=== PATIENT | female | born 1950 | race Hispanic/Latino ===

== ENCOUNTER 2020-11-04 15:30 | Inpatient (IN) | payer MEDICARE, OTHER ==
[~2020-11-04] VITALS: Ht 175.3 cm; Wt 95.1 kg
[~2020-11-04 15:30] MED LIST: ACETAMINOPHEN325 M1 PO; AMLODIPINE BESY10 MG PO; ASPIRIN81 MG PO; BACTRIM DS TAB1 EACH PO; BENAZEPRIL-HCT1 EAC3 PO; CALCITRIOL0.25 MCG PO; DOXYCYCLINE MO100 MG PO; FUROSEMIDE40 MG PO; GLIPIZIDE5 MG PO; INSULIN GLARGINE SC; LEVOTHYROXINE100 MC1 PO; LEVOTHYROXINE100 MCG PO; LOKELMA10 GM PO; LOSARTAN POTAS100 MG PO; METOPROLOL TART50 MG PO; ONDANSETRON HCL INJ 2MG/ML 2ML 2 MG/ML VIAL ONE; POVIDONE IODINE 0.05% 0.05 % ML PO ONE; PRAVASTATIN SOD40 MG PO; TRADJENTA5 MG PO; VITAMIN D32000 UNIT PO
[2020-11-04 16:30] LABS: BASOPHILS % 0.4 % (0.0-1.0); EOSINOPHILS # (AUTO) 0.1 (0.0-0.4); EOSINOPHILS % 0.9 % (0.0-6.0); HEMATOCRIT 25.9 % (34.2-44.1); HEMOGLOBIN 8.5 g/dL (12.0-16.0); LYMPHOCYTES # (AUTO) 1.2 (1.0-3.2); LYMPHOCYTES % 15.7 % (18.0-39.1); MEAN CORPUSCULAR HEMOGLOBIN 29.9 pg (28-32); MEAN CORPUSCULAR HGB CONC 32.8 g/dL (31-35); MEAN CORPUSCULAR VOLUME 91.2 fL (81-99); MONOCYTES # (AUTO) 0.6 (0.2-0.8); MONOCYTES % 7.8 % (4.4-11.3); NEUTROPHILS # (AUTO) 5.8 (2.1-6.9); NEUTROPHILS % 73.8 % (38.7-80.0); PLATELET COUNT 242 x10e3/uL (140-360); RED BLOOD COUNT 2.84 x10e6/uL (3.6-5.1)
[2020-11-04 16:32] LABS: CLARITY,URINE CLEAR (CLEAR); COLOR,URINE YELLOW (YELLOW); KETONES,URINE NEGATIVE (NEGATIVE); LEUKOCYTE ESTERASE ,URINE NEGATIVE (NEGATIVE); NITRITE,URINE NEGATIVE (NEGATIVE); PROTEIN,URINE DIPSTICK NEGATIVE (NEGATIVE); URINE UROBILINOGEN 0.2 mg/dL (0.2 - 1)
[2020-11-04 16:45] LABS: BACTERIA,URINE RARE /HPF; EPITHELIAL CELLS,URINE FEW /LPF
[2020-11-04 16:50] LABS: ALBUMIN 2.5 g/dL (3.5-5.0); ALBUMIN/GLOBULIN RATIO 0.5 (0.8-2.0); ANION GAP 16.1 mmol/L (8-16); CALCIUM 9.5 mg/dL (8.4-10.2); CREATININE, SERUM 4.25 mg/dL (0.57-1.11)
[2020-11-04 16:54] LABS: POTASSIUM 6.1 mmol/L (3.5-5.1)
[2020-11-04] MEDS ORDERED: SODIUM BICARBONATE 8.4% INJ 50 ML SYR IV STA (17:08)
[2020-11-04] MEDS ORDERED: DEXTROSE 50% SYRINGE 50 ML IV ONE (17:15)
[2020-11-04] MEDS ORDERED: CALCIUM GLUCONATE 10% INJ 4.65 MEQ in SODIUM CHLORIDE 0.9% 50ML 50 ML IV ONE (17:15)
[2020-11-04] MEDS ORDERED: SOD POLYSTYRENE SULFONATE SUSP 15 GM/60 ML BTL PO ONE (17:15)
[2020-11-04] MEDS ORDERED: INSULIN REGULAR, HUMAN 100 UNIT/1 ML IV ONE (17:15)
[2020-11-04] MEDS ORDERED: SODIUM CHLORIDE 0.9% 250ML 250 ML ONE (17:23)
[2020-11-04] MEDS ORDERED: CALCIUM GLUCONATE 10% INJ 0.465 MEQ/ML VIAL ONE (17:23)
[2020-11-04 17:29] LABS: CREATINE KINASE MB 1.5 ng/mL (0-5.0)
[2020-11-04] MEDS ORDERED: SODIUM CHLORIDE 0.9% 1000ML 1,000 ML IV ONE (18:00)
[2020-11-04] MEDS ORDERED: DEXTROSE 50% SYRINGE 50 ML IV PRN (18:00)
[2020-11-04] MEDS ORDERED: ONDANSETRON HCL INJ 2MG/ML 2ML 2 MG/ML VIAL IV PRN (18:00)
[2020-11-04] MEDS ORDERED: TOUJEO MAX300 UNIT/1 SC (18:05)
[2020-11-04] MEDS ORDERED: EUTHYROX100 MCG (18:05)
[2020-11-04] MEDS ORDERED: SMZ/TMP (18:05)
[2020-11-04] MEDS ORDERED: METOPROLOL SUCC50 MG PO (18:05)
[2020-11-04] MEDS ORDERED: CLOPIDOGREL75 MG (18:05)
[2020-11-04 20:16] VITALS: BP 125/48
[2020-11-04 20:30] VITALS: BP 125/48
[2020-11-04] MEDS: CEFEPIME 1 GM in SODIUM CHLORIDE 0.9% 50ML 50 ML IV SCH (20:50)
[2020-11-04] MEDS: INSULIN REGULAR, HUMAN 100 UNIT/1 ML SQ SCH (20:51)
[2020-11-04] MEDS ORDERED: AMLODIPINE BESY10 MG PO (21:09)
[2020-11-04] MEDS ORDERED: GLIPIZIDE5 MG PO (21:09)
[2020-11-04] MEDS ORDERED: DOXYCYCLINE MO100 M1 (21:09)
[2020-11-04] MEDS: ACETAMINOPHEN 325 MG TAB PO PRN (23:16)
[2020-11-05] VITALS (8 sets, daily range): BP systolic 120–144; BP diastolic 37–51
[2020-11-05] MEDS ORDERED: ACETAMINOPHEN/CODEINE 300MG - 30MG TAB PO PRN (01:00)
[2020-11-05] MEDS: ACETAMINOPHEN 325 MG TAB PO PRN ×2 (04:06→10:08)
[2020-11-05 05:31] LABS: BASOPHILS % 0.5 % (0.0-1.0); EOSINOPHILS # (AUTO) 0.1 (0.0-0.4); EOSINOPHILS % 1.3 % (0.0-6.0); HEMATOCRIT 24.1 % (34.2-44.1); HEMOGLOBIN 7.9 g/dL (12.0-16.0); LYMPHOCYTES # (AUTO) 1.5 (1.0-3.2); LYMPHOCYTES % 18.9 % (18.0-39.1); MEAN CORPUSCULAR HEMOGLOBIN 29.8 pg (28-32); MEAN CORPUSCULAR HGB CONC 32.8 g/dL (31-35); MEAN CORPUSCULAR VOLUME 90.9 fL (81-99); MONOCYTES # (AUTO) 0.8 (0.2-0.8); MONOCYTES % 9.8 % (4.4-11.3); NEUTROPHILS # (AUTO) 5.2 (2.1-6.9); NEUTROPHILS % 68.3 % (38.7-80.0); PLATELET COUNT 239 x10e3/uL (140-360); RED BLOOD COUNT 2.65 x10e6/uL (3.6-5.1)
[2020-11-05 05:58] LABS: ALBUMIN 2.3 g/dL (3.5-5.0); ALBUMIN/GLOBULIN RATIO 0.5 (0.8-2.0); ANION GAP 14.1 mmol/L (8-16); CALCIUM 9.7 mg/dL (8.4-10.2); CREATININE, SERUM 4.12 mg/dL (0.57-1.11); POTASSIUM 5.1 mmol/L (3.5-5.1)
[2020-11-05] MEDS: INSULIN REGULAR, HUMAN 100 UNIT/1 ML SQ SCH ×4 (07:30→21:00)
[2020-11-05] MEDS ORDERED: MAGNESIUM SULFATE 2GM/50ML 50 ML IV ONE ×2 (16:00)
[2020-11-05] MEDS ORDERED: MAGNESIUM SULF 1GRAM/DEXTROSE 100 ML IV SCH ×2 (16:30→19:10)
[2020-11-05] MEDS: CEFEPIME 1 GM in SODIUM CHLORIDE 0.9% 50ML 50 ML IV SCH (16:57)
[2020-11-05] MEDS: SODIUM CHLORIDE 0.9% 1000ML 1,000 ML IV SCH (16:57)
[2020-11-05] MEDS: MAGNESIUM SULF 1GRAM/DEXTROSE 100 ML IV SCH ×2 (19:40→20:50)
[2020-11-06] VITALS (7 sets, daily range): BP systolic 119–138; BP diastolic 41–54
[2020-11-06] MEDS: ACETAMINOPHEN 325 MG TAB PO PRN (00:10)
[2020-11-06] MEDS: SODIUM CHLORIDE 0.9% 1000ML 1,000 ML IV SCH ×2 (01:45→12:00)
[2020-11-06] MEDS: LEVOTHYROXINE SODIUM 100 MCG TAB PO SCH (06:00)
[2020-11-06 06:42] LABS: ANION GAP 16.5 mmol/L (8-16); CALCIUM 9.4 mg/dL (8.4-10.2); CREATININE, SERUM 3.54 mg/dL (0.57-1.11); POTASSIUM 5.5 mmol/L (3.5-5.1)
[2020-11-06] MEDS: INSULIN REGULAR, HUMAN 100 UNIT/1 ML SQ SCH ×4 (07:30→21:33)
[2020-11-06] MEDS: AMLODIPINE BESYLATE 10 MG TAB PO SCH (10:10)
[2020-11-06] MEDS ORDERED: SOD POLYSTYRENE SULFONATE SUSP 15 GM/60 ML BTL PO ONE (15:30)
[2020-11-06] MEDS ORDERED: FUROSEMIDE INJ 10 MG/ML 2 ML VIAL IV NR (15:30)
[2020-11-06] MEDS ORDERED: SOD POLYSTYRENE SULFONATE SUSP 15 GM/60 ML BTL PO NR (15:45)
[2020-11-06] MEDS: FAMOTIDINE 20 MG TAB PO SCH (16:28)
[2020-11-06] MEDS: CEFEPIME 1 GM in SODIUM CHLORIDE 0.9% 50ML 50 ML IV SCH (17:47)
[2020-11-07] VITALS (8 sets, daily range): BP systolic 105–141; BP diastolic 36–64
[2020-11-07] MEDS: SODIUM CHLORIDE 0.9% 1000ML 1,000 ML IV SCH (01:45)
[2020-11-07] MEDS: LEVOTHYROXINE SODIUM 100 MCG TAB PO SCH (06:00)
[2020-11-07 07:04] LABS: ANION GAP 13.3 mmol/L (8-16); CALCIUM 8.8 mg/dL (8.4-10.2); CREATININE, SERUM 3.34 mg/dL (0.57-1.11); POTASSIUM 5.3 mmol/L (3.5-5.1)
[2020-11-07] MEDS: FAMOTIDINE 20 MG TAB PO SCH ×2 (07:30→16:30)
[2020-11-07] MEDS: INSULIN REGULAR, HUMAN 100 UNIT/1 ML SQ SCH ×4 (07:30→20:25)
[2020-11-07 07:31] LABS: THYROID STIMULATING HORMONE 1.673 uIU/mL (0.350-4.940)
[2020-11-07] MEDS ORDERED: FUROSEMIDE INJ 10 MG/ML 2 ML VIAL IV ONE (08:30)
[2020-11-07] MEDS ORDERED: SOD POLYSTYRENE SULFONATE SUSP 15 GM/60 ML BTL PO ONE (08:30)
[2020-11-07] MEDS: AMLODIPINE BESYLATE 10 MG TAB PO SCH (09:00)
[2020-11-07] MEDS ORDERED: SODIUM CHLORIDE 0.9% 250ML 250 ML ONE (16:00)
[2020-11-07] MEDS: CEFEPIME 1 GM in SODIUM CHLORIDE 0.9% 50ML 50 ML IV SCH (18:00)
[2020-11-08] VITALS (9 sets, daily range): BP systolic 135–159; BP diastolic 43–66
[2020-11-08 04:54] LABS: BASOPHILS % 0.5 % (0.0-1.0); EOSINOPHILS # (AUTO) 0.1 (0.0-0.4); EOSINOPHILS % 2.3 % (0.0-6.0); HEMATOCRIT 24.7 % (34.2-44.1); HEMOGLOBIN 7.9 g/dL (12.0-16.0); LYMPHOCYTES # (AUTO) 1.2 (1.0-3.2); LYMPHOCYTES % 20.5 % (18.0-39.1); MEAN CORPUSCULAR HEMOGLOBIN 30.2 pg (28-32); MEAN CORPUSCULAR VOLUME 94.3 fL (81-99); MONOCYTES # (AUTO) 0.4 (0.2-0.8); MONOCYTES % 7.1 % (4.4-11.3); NEUTROPHILS # (AUTO) 4.2 (2.1-6.9); NEUTROPHILS % 68.8 % (38.7-80.0); PLATELET COUNT 162 x10e3/uL (140-360); RED BLOOD COUNT 2.62 x10e6/uL (3.6-5.1); RED CELL DISTRIBUTION WIDTH 12.9 % (11.7-14.4)
[2020-11-08 05:10] LABS: INR 1.14; PROTHROMBIN TIME 15.3 seconds (11.9-14.5)
[2020-11-08 05:15] LABS: ANION GAP 12.3 mmol/L (8-16); CALCIUM 8.8 mg/dL (8.4-10.2); POTASSIUM 4.3 mmol/L (3.5-5.1)
[2020-11-08] MEDS: LEVOTHYROXINE SODIUM 100 MCG TAB PO SCH (05:47)
[2020-11-08] MEDS ORDERED: BUPIVACAINE HCL 0.5% INJ 30 ML VIAL INJ ONE (06:28)
[2020-11-08] MEDS ORDERED: DEXAMETHASONE SOD PHOS INJ 4 MG/ML VIAL ONE (06:29)
[2020-11-08] MEDS ORDERED: SCOPOLAMINE 1.5 MG PATCH ONE (06:57)
[2020-11-08] MEDS: INSULIN REGULAR, HUMAN 100 UNIT/1 ML SQ SCH ×4 (07:30→21:07)
[2020-11-08] MEDS: FAMOTIDINE 20 MG TAB PO SCH ×2 (09:17→18:09)
[2020-11-08] MEDS: AMLODIPINE BESYLATE 10 MG TAB PO SCH (09:17)
[2020-11-08] MEDS: ACETAMINOPHEN 325 MG TAB PO PRN (09:24)
[2020-11-08] MEDS ORDERED: TRAMADOL HCL 50 MG TAB PO PRN (11:15)
[2020-11-08] MEDS ORDERED: HYDROMORPHONE 1MG/1ML INJ IV ONE (12:00)
[2020-11-08] MEDS ORDERED: MIDAZOLAM HCL 2 MG/2 ML VIAL ONE (12:32)
[2020-11-08] MEDS ORDERED: FENTANYL CITRATE/PF 100MCG/2 ML INJ ONE (12:32)
[2020-11-08] MEDS: FERROUS SULFATE 325 MG TAB PO SCH (18:08)
[2020-11-08] MEDS: CEFEPIME 1 GM in SODIUM CHLORIDE 0.9% 50ML 50 ML IV SCH (18:08)
[2020-11-08] MEDS: ASCORBIC ACID 500 MG TAB PO SCH (18:09)
[2020-11-09] VITALS (7 sets, daily range): BP systolic 133–143; BP diastolic 39–89
[2020-11-09] MEDS: LEVOTHYROXINE SODIUM 100 MCG TAB PO SCH (06:09)
[2020-11-09] MEDS: FAMOTIDINE 20 MG TAB PO SCH ×2 (06:09→16:28)
[2020-11-09 06:24] LABS: BASOPHILS % 0.6 % (0.0-1.0); EOSINOPHILS # (AUTO) 0.2 (0.0-0.4); EOSINOPHILS % 2.6 % (0.0-6.0); HEMATOCRIT 23.9 % (34.2-44.1); HEMOGLOBIN 7.7 g/dL (12.0-16.0); LYMPHOCYTES # (AUTO) 1.3 (1.0-3.2); LYMPHOCYTES % 18.6 % (18.0-39.1); MEAN CORPUSCULAR HEMOGLOBIN 30.1 pg (28-32); MEAN CORPUSCULAR HGB CONC 32.2 g/dL (31-35); MEAN CORPUSCULAR VOLUME 93.4 fL (81-99); MONOCYTES # (AUTO) 0.5 (0.2-0.8); MONOCYTES % 7.4 % (4.4-11.3); NEUTROPHILS # (AUTO) 4.9 (2.1-6.9); NEUTROPHILS % 69.9 % (38.7-80.0); PLATELET COUNT 183 x10e3/uL (140-360); RED BLOOD COUNT 2.56 x10e6/uL (3.6-5.1); RED CELL DISTRIBUTION WIDTH 12.8 % (11.7-14.4)
[2020-11-09 06:54] LABS: ANION GAP 10.4 mmol/L (8-16); CALCIUM 8.6 mg/dL (8.4-10.2); CREATININE, SERUM 2.62 mg/dL (0.57-1.11); POTASSIUM 4.4 mmol/L (3.5-5.1)
[2020-11-09 07:21] LABS: FERRITIN 302.53 ng/mL (4.63-204.00)
[2020-11-09] MEDS: INSULIN REGULAR, HUMAN 100 UNIT/1 ML SQ SCH ×4 (07:30→20:28)
[2020-11-09] MEDS: AMLODIPINE BESYLATE 10 MG TAB PO SCH (09:44)
[2020-11-09] MEDS: FERROUS SULFATE 325 MG TAB PO SCH ×2 (09:44→16:28)
[2020-11-09] MEDS: ASCORBIC ACID 500 MG TAB PO SCH ×2 (09:44→16:28)
[2020-11-09] MEDS ORDERED: ONDANSETRON HCL 4 MG ORAL DISINTEGRATING TAB PO PRN (10:30)
[2020-11-09] MEDS: CEFEPIME 1 GM in SODIUM CHLORIDE 0.9% 50ML 50 ML IV SCH (16:28)
[2020-11-10 00:31] VITALS: BP 135/48
[2020-11-10 04:00] VITALS: BP 153/56
[2020-11-10 05:31] LABS: BASOPHILS # (AUTO) 0.1 (0.0-0.1); BASOPHILS % 0.7 % (0.0-1.0); EOSINOPHILS # (AUTO) 0.2 (0.0-0.4); EOSINOPHILS % 2.4 % (0.0-6.0); HEMATOCRIT 26.6 % (34.2-44.1); HEMOGLOBIN 8.5 g/dL (12.0-16.0); LYMPHOCYTES # (AUTO) 1.4 (1.0-3.2); LYMPHOCYTES % 19.7 % (18.0-39.1); MEAN CORPUSCULAR HEMOGLOBIN 29.7 pg (28-32); MONOCYTES # (AUTO) 0.5 (0.2-0.8); MONOCYTES % 6.6 % (4.4-11.3); NEUTROPHILS % 69.5 % (38.7-80.0); PLATELET COUNT 170 x10e3/uL (140-360); RED BLOOD COUNT 2.86 x10e6/uL (3.6-5.1); RED CELL DISTRIBUTION WIDTH 12.6 % (11.7-14.4)
[2020-11-10 05:55] LABS: ANION GAP 10.4 mmol/L (8-16); CALCIUM 9.2 mg/dL (8.4-10.2); CREATININE, SERUM 2.52 mg/dL (0.57-1.11); POTASSIUM 4.4 mmol/L (3.5-5.1)
[2020-11-10] MEDS: LEVOTHYROXINE SODIUM 100 MCG TAB PO SCH (06:14)
[2020-11-10] MEDS: FAMOTIDINE 20 MG TAB PO SCH (06:14)
[2020-11-10] MEDS: INSULIN REGULAR, HUMAN 100 UNIT/1 ML SQ SCH ×2 (07:30→11:30)
[2020-11-10 08:14] VITALS: BP 142/38
[2020-11-10 09:10] VITALS: BP 142/38
[2020-11-10] MEDS: AMLODIPINE BESYLATE 10 MG TAB PO SCH (09:14)
[2020-11-10] MEDS: ASCORBIC ACID 500 MG TAB PO SCH (09:14)
[2020-11-10] MEDS: FERROUS SULFATE 325 MG TAB PO SCH (09:14)
[2020-11-10 09:17] VITALS: BP 149/47
[2020-11-10 12:03] VITALS: BP 158/65
[2020-11-10] MEDS ORDERED: ULTRAM50 MG PO (13:11)
== END 2020-11-10 14:05 | disposition home or self-care (01) | DRG 617 ==
LOC: ER 15:46 → ERHOLD 18:06 → MED/SURG3 19:49
PROVIDERS: ADMIT Internal Medicine; ATTEND Internal Medicine
PROC: 0Y6Q0Z0 Detachment at Left 1st Toe, Complete, Open Approach (ICD-10-PCS; principal; 2020-11-08 07:00)
DX: E11.69 Type 2 diabetes mellitus with other specified complication (principal); M86.8X7 Other osteomyelitis, ankle and foot; N17.9 Acute kidney failure, unspecified; E11.21 Type 2 diabetes mellitus with diabetic nephropathy; E11.22 Type 2 diabetes mellitus with diabetic chronic kidney disease; E87.5 Hyperkalemia; Z88.5 Allergy status to narcotic agent; E78.5 Hyperlipidemia, unspecified; E11.42 Type 2 diabetes mellitus with diabetic polyneuropathy; Z90.49 Acquired absence of other specified parts of digestive tract; I12.9 Hypertensive chronic kidney disease with stage 1 through stage 4 chronic kidney disease, or unspecified chronic kidney disease; N18.4 Chronic kidney disease, stage 4 (severe); E03.9 Hypothyroidism, unspecified; D63.1 Anemia in chronic kidney disease; E83.42 Hypomagnesemia; E11.621 Type 2 diabetes mellitus with foot ulcer; L97.524 Non-pressure chronic ulcer of other part of left foot with necrosis of bone; Z89.422 Acquired absence of other left toe(s); Z79.4 Long term (current) use of insulin; E11.51 Type 2 diabetes mellitus with diabetic peripheral angiopathy without gangrene
CPT/HCPCS: 36415; 71045; 80048; 80053; 80061; 81001; 82550; 82553; 82728; 82948; 83036; 83540; 83735; 84443; 84466; 84484; 85025; 85610; 87071; 87075; 87186; 87205; 88304; 88305; 88311; 93005; 96361; 96372; 99284; J0610; J0692; J1100; J1170; J1817; J1940; J2250; J2405; J3010; J3475; J7030; J7050; J7799